=== PATIENT | male | born 1945 | race African-American/Black ===

== ENCOUNTER 2016-09-04 16:30 | Emergency (ER) | payer BC ==
[~2016-09-04 16:30] MED LIST: ASAB PO; FERROUS SULF325 M1 PO; FOSAMAX70 MG PO; LIPITOR10 PO; LORTAB10 PO; LOZOLTAB PO; TOPROL XL200 MG PO; ULTRAM50 PO; VITAMIN B-121000 MC1 SL; ZOCOR5 MG PO
== END 2016-09-04 17:30 | disposition home or self-care (01) ==
LOC: ER 16:30
DX: S09.90XA Unspecified injury of head, initial encounter (principal); M54.5 Low back pain; M79.632 Pain in left forearm; M25.559 Pain in unspecified hip; I10 Essential (primary) hypertension; V29.40XA Motorcycle driver injured in collision with unspecified motor vehicles in traffic accident, initial encounter
CPT/HCPCS: 70450; 72100; 73090-LT; 73522; 99284